=== PATIENT | male | born 1980 | race Caucasian/White ===

== ENCOUNTER 2018-06-25 11:00 | Emergency (ER) | payer OTHER ==
[2018-06-25] MEDS ORDERED: KETOROLAC 30 MG/ML VIAL IM ONE (11:51)
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
[2018-06-25] MEDS ORDERED: SILVER SULFADIAZINE 25 GM CREAM TOP ONE (12:02)
[2018-06-25 12:07] LABS: URINE APPEARANCE CLEAR; URINE BILIRUBIN NEGATIVE (NEGATIVE); URINE BLOOD NEGATIVE (NEGATIVE); URINE COLOR YELLOW; URINE GLUCOSE (UA) NEGATIVE (NEGATIVE); URINE KETONE NEGATIVE (NEGATIVE); URINE LEUKOCYTE ESTERASE NEGATIVE (NEGATIVE); URINE NITRITE NEGATIVE (NEGATIVE); URINE PROTEIN NEGATIVE (NEGATIVE); URINE UROBILINOGEN 0.2 E.U./dL (0.20 - 1.00)
[2018-06-25] MEDS ORDERED: Diph,Pert(Acell),Tet Vac 0.5 ML SYR IM ONE (12:46)
== END 2018-06-25 13:02 | disposition home or self-care (01) ==
LOC: ER 11:00
DX: T20.26XA Burn of second degree of forehead and cheek, initial encounter (principal); T20.212A Burn of second degree of left ear [any part, except ear drum], initial encounter; T28.412A Burn of left ear drum, initial encounter; T31.0 Burns involving less than 10% of body surface; W86.1XXA Exposure to industrial wiring, appliances and electrical machinery, initial encounter; Y93.89 Activity, other specified; Y92.9 Unspecified place or not applicable; Y99.0 Civilian activity done for income or pay
CPT/HCPCS: 81003; 90715; 96372; 99283; J1885

== ENCOUNTER 2018-06-26 09:53 | Emergency (ER) | payer OTHER ==
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
[2018-06-26] MEDS ORDERED: BACIT/NEOM/POLY OINT TOP SCH (10:30)
[2018-06-26] MEDS ORDERED: SILVER SULFADIAZINE 25 GM CREAM TOP ONE (10:30)
== END 2018-06-26 11:21 | disposition home or self-care (01) ==
LOC: ER 09:53
DX: T20.26XA Burn of second degree of forehead and cheek, initial encounter (principal); T20.212A Burn of second degree of left ear [any part, except ear drum], initial encounter; T28.412A Burn of left ear drum, initial encounter; T31.0 Burns involving less than 10% of body surface; W86.1XXA Exposure to industrial wiring, appliances and electrical machinery, initial encounter; Y93.89 Activity, other specified; Y92.9 Unspecified place or not applicable; Y99.0 Civilian activity done for income or pay
CPT/HCPCS: 99282